=== PATIENT | male | born 1945 | race Caucasian/White ===

== ENCOUNTER → 2023-08-16 11:11 | Outpatient (REF) | payer OTHER, SELFPAY | LOC: RAD 11:11 | PROVIDERS: ATTENDING PHYSICIAN Internal Medicine Cardiovascular Disease; FAMILY PHYSICIAN Family Medicine | DX: G45.9 Transient cerebral ischemic attack, unspecified (principal); I48.19 Other persistent atrial fibrillation | CPT/HCPCS: 93880 ==

== ENCOUNTER → 2023-08-16 12:54 | Outpatient (REF) | payer OTHER, SELFPAY | LOC: DHCBS MAIN 12:54 | PROVIDERS: ATTENDING PHYSICIAN Internal Medicine Cardiovascular Disease; FAMILY PHYSICIAN Family Medicine | DX: G45.9 Transient cerebral ischemic attack, unspecified (principal); I48.19 Other persistent atrial fibrillation | CPT/HCPCS: 93306 ==

== ENCOUNTER 2023-08-20 06:39 | Inpatient (IN) | payer OTHER, SELFPAY ==
--- NOTE | 2023-05-31 11:27 | CM ---
Addendum entered by Lyndsey Mays 07/24/23 10:03:
Patient's surgery date has been changed to 08/20/22.
Original Note:
Patient is scheduled for an elective L TKR on 07/02/23. Spoke with patient prior to surgery via telephone. Introduced role of Orthopedic Navigator. Patient reports that he lives with his in a one story home. There is one step to enter. He
currently functions independently. He has a cane and rolling walker (which are his 's from her prior orthopedic surgery). He has never had VN services. PCP is Dr. Matty Luo.
Discussed orthopedic program and post surgical plans. Reviewed anticipated length of stay and that goal is for him to return home at discharge. Also reviewed outpatient PT. Patient is in agreement with tentative plan and will go directly to
outpatient PT at [facility]. He will have support from his when he goes home.
Patient will complete online education.
Plan: Orthopedic Navigator will remain available to assist with the care of patient and will reassess discharge needs after surgery.
[2023-06-13 10:00] VITALS: BMI 32.4
[2023-06-13 10:53] LABS: Hematocrit 46.9 % (39.0-52.0); Hemoglobin 15.9 g/dL (13.0-18.0); Mean Corp Hgb Conc. 33.9 g/dL (33.0-37.0); Mean Corpuscular Hgb 32.6 pg (27.0-31.0); Mean Corpuscular Volume 96.1 fL (80.0-94.0); Mean Platelet Volume 9.6 fL (7.4-10.4); Platelet Count 208 10^3/uL (130-400); Red Blood Cell Count 4.88 10^6/uL (4.70-6.10); Red Cell Dist. Width 13.4 % (11.5-14.5); White Blood Cell Count 4.9 10^3/uL (4.8-10.8)
[2023-06-13 11:25] LABS: ALT (SGPT) 37 U/L (0-50); AST (SGOT) 40 U/L (17-59); Albumin 4.2 g/dl (3.5-5.0); Alkaline Phosphatase 62 U/L (38-126); Blood Urea Nitrogen 26 mg/dl (9-20); Calcium 9.6 mg/dl (8.4-10.2); Carbon Dioxide 28 mmol/L (22-30); Chloride 103 mmol/L (98-107); Estimated Creatinine Clearance 55 ml/min; Glucose 98 mg/dl (70-99); Potassium 4.4 mmol/L (3.5-5.1); Sodium 141 mmol/L (135-145); Total Protein 6.9 g/dl (6.3-8.2); eGFR 56.23
[2023-06-13 16:29] VITALS: BMI 32.4
[2023-06-14 12:50] LABS: Glycohemoglobin (HgbA1c) 5.7 % (4.0-5.6)
[2023-07-31 10:48] LABS: Hematocrit 45.8 % (39.0-52.0); Mean Corp Hgb Conc. 34.9 g/dL (33.0-37.0); Mean Corpuscular Hgb 33.8 pg (27.0-31.0); Mean Corpuscular Volume 96.6 fL (80.0-94.0); Mean Platelet Volume 10.1 fL (7.4-10.4); Platelet Count 201 10^3/uL (130-400); Red Blood Cell Count 4.74 10^6/uL (4.70-6.10); Red Cell Dist. Width 14.4 % (11.5-14.5); White Blood Cell Count 5.2 10^3/uL (4.8-10.8)
[2023-07-31 11:03] LABS: ALT (SGPT) 28 U/L (0-50); AST (SGOT) 33 U/L (17-59); Albumin 4.1 g/dl (3.5-5.0); Alkaline Phosphatase 57 U/L (38-126); Blood Urea Nitrogen 21 mg/dl (9-20); Calcium 9.2 mg/dl (8.4-10.2); Carbon Dioxide 31 mmol/L (22-30); Chloride 103 mmol/L (98-107); Estimated Creatinine Clearance 55 ml/min; Glucose 93 mg/dl (70-99); Potassium 4.2 mmol/L (3.5-5.1); Sodium 139 mmol/L (135-145); Total Protein 6.8 g/dl (6.3-8.2); eGFR 56.23
--- NOTE | 2023-07-31 11:05 | HPS.HSE ---
Family Physician
-
Family Physician: Berny Luo
Chief Complaint
-
Advanced primary osteoarthritis of the left knee.
History of Present Illness
The patient is a 77-year-old male presenting today for advanced primary osteoarthritis of the left knee. The patient reports significant left knee pain secondary to this diagnosis. He notes that his current left knee pain is greatly
interfering with his activities of daily living and is overall impacting his quality of life. He has tried and failed multiple conservative treatment measures in the past for his knee pain. These conservative treatment measures include
intra-articular injections, self-directed therapeutic exercises, activity modification, attempted weight loss, medical management with Tylenol, and the application of ice and/or heat. Recent x-rays revealed [id number] end-stage arthritis with
periarticular spur formation. He was determined to be in need of a left total knee arthroplasty. He denies any current complaints today, such as chest pain, shortness of breath, palpitations, nausea, vomiting, diarrhea, lightheadedness, dizziness,
cough, sore throat, or fever.
Medical History
Past Medical History
Past Medical History: Reports Other
Additional Past Medical History:
1.�Osteoarthritis.
2.�Hypertension.
3.�Hyperlipidemia.
4.�Persistent atrial fibrillation, status post multiple cardioversions and ablation x4; pharmacological therapy with Diltiazem and Metoprolol, oral anticoagulation with Eliquis.
5. Abdominal aortic aneurysm, 2.6 cm, on CT 07/2022.
6. Mild-moderate valvular disease.
7. Pulmonary nodules, likely benign.
8. Chronic kidney disease stage 3.
9. Diverticulosis.
10.�Fatty liver disease.
11. Bilateral renal cysts.
12. 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
13. History of rectal bleed 2016.
14. Multilevel degenerative disc disease with radiculopathy.
15. Chronic sinusitis.
16. Psoriasis.
17.�Insomnia.
18. Depression.
19. Anxiety.
20. Prediabetes, A1c 5.8.
21.�Obesity, BMI 32.4.
22.�History of remote tobacco abuse.
Past Surgical History: Reports Other
Additional Past Surgical History:
1.�Atrial fibrillation ablation x4.
2. Multiple ZACH-guided cardioversions.
3. Remote right axillary lymph node dissection.
4. Nasal polyp excision.
5. Colonoscopy.
Social History
Tobacco: Former Smoker (Former 1 pack per day cigarette smoker who quit tobacco altogether 45 years ago. )
Alcohol: None
Personal:
Living: Other (He lives in a ranch style home with his spouse. )
Family History
Family History: Not pertinent
Allergies / Home Medications
Allergy/Medication List:
Home medications:
1. Diltiazem 180 mg p.o. daily.
2. Eliquis 5 mg p.o. twice a day.
3. Hydrochlorothiazide 25 mg p.o. daily.
4. Magnesium citrate 200 mg p.o. daily.
5. Melatonin 3 mg p.o. at bedtime.
6. Metoprolol succinate 50 mg p.o. twice a day.
7. Mirtazapine 7.5 mg p.o. at bedtime.
8. Paxil 20 mg p.o. daily.
9. Azelastine-fluticasone 1 spray intranasal daily as needed.
10. Budesonide 0.5 mg inhaled at bedtime.
11. Cetirizine 10 mg p.o. daily as needed.
12. Clobetasol 1 application topical daily as needed.
13. Flaxseed oil 1 capsule p.o. at bedtime.
14. Flaxseed oil 2 capsule p.o. daily.
15. Osteo Bi-Flex 1 tablet p.o. twice a day.
16. Ipratropium bromide 2 sprays intranasal three times a day as needed.
17. Multivitamin 1 tablet p.o. daily.
18. Miralax 17 grams p.o. daily.
19. Saw palmetto 500 mg p.o. twice a day.
20. Zinc 82 mg p.o. every other day.
Allergies: Dust. Mold. [place]. Ragweed. Hayfever. No known drug allergies.
Review of Systems
-
A 12 point ROS was completed and negative except as noted: Yes
Physical Exam
Vital Signs
Blood pressure 131/88. Heart rate 70. Respirations 18. Pulse ox 97% on room air.
Height 5 feet, 9.5 inches. Weight 101 kg. BMI 32.4.
Physical Exam
General: Well Developed, Well Nourished and No Apparent Distress
HEENT: NormoCephalic, Moist mucous membranes, Atraumatic and PERRLA
Respiratory: Clear
Cardiac: Irregular Rhythm
GI: Soft, Non Tender and Non Distended
Musculoskeletal: Other (Left knee: varus deformity. Range of motion 5-120. Positive medial joint line tenderness with mild lateral joint line tenderness. Negative patellar grind. Trace effusion. Mild instability to valgus stress. Palpable Rodriguez
cyst.)
Skin: Warm and Dry
Neuro: AO x 3 and Nonfocal/grossly intact
Laboratory Results
-
07/31/23 08:55
07/31/23 08:55
Laboratory Results
Total Bilirubin 1.0 mg/dl (0.2-1.3) 07/31/23 08:55
AST 33 U/L (17-59) 07/31/23 08:55
ALT 28 U/L (0-50) 07/31/23 08:55
Alkaline Phosphatase 57 U/L (38-126) 07/31/23 08:55
Hemoglobin A1c 5.8.
MRSA screen negative.
EKG provided by Cardiology.
Echocardiogram 02/13/2023: Estimated ejection fraction is 60-65%.�Mild concentric LVH. Moderate mitral regurgitation. Thickened aortic valve with mild aortic insufficiency. Mild tricuspid regurgitation with estimated pulmonary systolic pressures of
40-45 mmHg.
Impression/Plan
-
CLEARANCES:
1. Primary medical: Dr. Berny Luo, pending.
Primary medical phone number: [phone].
2. Cardiology: Dr. Emmanuel Atkins, cleared.
3. Dental pending.
IMPRESSION/PLAN:
1. Advanced primary osteoarthritis of the left knee in need of a left total knee arthroplasty with Dr. Thaddeus Corona on 08/20/2023. The benefits and risks of the procedure have been explained to the patient. The patient understands these risks and
wishes to proceed.
2. DVT prophylaxis: Eliquis at modified dosing with bilateral venous foot pumps. He is aware to hold his Eliquis 3 days prior to his upcoming procedure. We will resume his home dosing of Eliquis on post-operative day 14 as long as he remains
hemodynamically stable. Plasma flow devices were highly encouraged to be used in the outpatient setting upon discharge.
3. Persistent atrial fibrillation: The patient will be monitored on telemetry post-operatively. He will continue his Metoprolol and Diltiazem without interruption.
4. Pain management: A steroid taper will be considered post-operatively. The patient would like to minimize the use of Lidoderm patches if able.
Patient's phone number: [phone].
Patient's contact (Maren Canada - Spouse): [phone].
[2023-07-31 11:32] VITALS: BMI 35.3
[2023-07-31 12:48] LABS: Glycohemoglobin (HgbA1c) 5.8 % (4.0-5.6)
[2023-07-31 14:40] VITALS: BMI 35.3
--- NOTE | 2023-08-10 09:04 | SLEEP.APNEA ---
Sleep Apnea Order
-
Patient screened as High Risk for Sleep Apnea on [employer] Questionnaire. Patient referred to [facility] for Pre-Study.

Name: DEWEY MOHAMUD
: 1945
Home Phone: Use [email or web address] instead
Cell Phone: [f_Reg Other Phone]
Work Phone:
Address: [address] [place] [address]
City: [place]
State: [place]
Zip: [f_[facility] Zip]
Family Physician: Berny Luo
Height 5 ft 9 in
Actual Weight 108.4 kg
Body Mass Index (BMI) 35.3
Ordering Provider: Lakshmi Sharma PA-C
[2023-08-20] VITALS (11 sets, daily range): BP systolic 103–138; BP diastolic 68–89; PULSE 63–65; O2SAT 95; BMI 35.3
[2023-08-20] MEDS: TYLENOL 650 MG PO ×3 (10:01→21:37)
[2023-08-20] MEDS: CELEBREX 200 MG PO (10:01)
[2023-08-20] MEDS: NORMOSOL-R 1000 IV ×2 (10:01→14:15)
--- NOTE | 2023-08-20 14:39 | W.PN.ORTHO ---
Today's Communication / Plan
-
D/c when clinically stable.
Assessment
.
Distal Motor Intact: Yes
Dressing:
Clean, dry and intact.
Assessment:
L knee OA s/p L TKA w/ Dr Corona 08/20/23
DVT prophylaxis - Eliquis at modified dosing until POD 14, b/l venous foot pumps
HTN - + parameters - monitor BP
Persistent atrial fibrillation, status post multiple cardioversions and ablation x4 - monitor on tele
- Continue Diltiazem and Metoprolol
- Resume Eliquis as stated above
Chronic kidney disease stage 3 - minimize nephrotoxins as able
Multilevel degenerative disc disease with radiculopathy - add Gabapentin TID
Hyperlipidemia
Abdominal aortic aneurysm, 2.6 cm, on CT 07/2022
Mild-moderate valvular disease
Pulmonary nodules, likely benign
Diverticulosis
Fatty liver disease
Bilateral renal cysts
Multiple pancreatic cystic lesions, stable on abdominal MRI 11/2022
History of rectal bleed 2016
Chronic sinusitis
Psoriasis
Insomnia
Depression
Anxiety
Prediabetes, A1c 5.8
Obesity, BMI 32.4
History of remote tobacco abuse
Plan
.
Surgery / Date: L TKA w/ Dr Corona 08/20/23
DVT Prophylaxis: Other (Eliquis at modified dosing until POD 14)
Activity:
Out of bed.
PT/OT
Discharge Plan: Home w/ Outpatient PT
Subjective
.
.:
Patient resting comfortably in the PACU.
L knee pain minimal and well tolerated.
Denies any new significant complaints.
Vital Signs and Labs
.
Vital Signs and Labs:
Lab Results
07/31/23 08:55
07/31/23 08:55
Physical Exam
-
HEENT: No pallor, cyanosis, or jaundice. Throat clear.
NECK: Supple. No JVD.
RESPIRATORY: Lungs clear to auscultation.
CVS: Irregular irregular rhythm (rate controlled)
ABDOMEN: Soft, non-tender. No distension. Obese.
EXTREMITIES: Strength equal, no calf pain with palpation/dorsiflexion. Calves soft.
MANUFACTURING PROJECT MANAGER: AOx3. No focal deficits. enterprise application architect grossly intact
--- NOTE | 2023-08-20 15:00 | PTCARENOTE ---
Pt arrived to [facility] [address] from PACU s/p L TKA. Pt L knee aqauacel C/D/I, NV intact- still gaining sensation back. IVF infusing. Pt states no pain at this time. Pt oriented to call adkins and room, bed locked and in lowest position, call adkins within reach.
[2023-08-20] MEDS: DELTASONE 40 MG PO (16:11)
[2023-08-20] MEDS: PAXIL 10 MG PO (16:11)
[2023-08-20] MEDS: PULMICORT 0.5 MG INH (20:00)
[2023-08-20] MEDS: MELATONIN 3 MG PO (21:35)
[2023-08-20] MEDS: ANCEF 5 IV (21:35)
[2023-08-20] MEDS: REMERON 7.5 MG PO (21:35)
[2023-08-20] MEDS: ELIQUIS 2.5 MG PO (21:36)
[2023-08-20] MEDS: TOPROL XL 50 MG PO (21:36)
[2023-08-20] MEDS: BACTROBAN 2% OINTMENT 1 APPLIC NASAL (21:38)
[2023-08-21] VITALS: BP 126/79
[2023-08-21] MEDS: TYLENOL PO (00:17)
[2023-08-21] MEDS: TYLENOL 650 MG PO ×3 (03:11→11:07)
[2023-08-21] MEDS: ANCEF 5 IV (03:11)
[2023-08-21 03:24] VITALS: BP 126/78
[2023-08-21 06:00] VITALS: BMI 34.7
[2023-08-21] MEDS: BACTROBAN 2% OINTMENT 2 APPLIC NASAL (08:28)
[2023-08-21] MEDS: ELIQUIS 2.5 MG PO (08:29)
[2023-08-21] MEDS: CARDIZEM CD 180 MG PO (08:30)
[2023-08-21] MEDS: DELTASONE 40 MG PO (08:31)
[2023-08-21] MEDS: PAXIL 10 MG PO (08:32)
[2023-08-21] MEDS: TOPROL XL 50 MG PO (08:32)
[2023-08-21 09:35] VITALS: BP 111/71; PULSE 83
--- NOTE | 2023-08-21 09:44 | CM ---
Reviewed chart and held rounds with PT, OT and nursing. Patient admitted as planned for elective L TKR. Met with patient at bedside. Confirmed information previously obtained for assessment. Also discussed discharge plans. The plan is for patient
to go to his home. He will have support from his . Patient will go directly to outpatient PT at [facility] [place]. He has an appointment for Sunday, August 22. Reviewed need to schedule appointment with PA at Dr. Corona office in two
weeks for removal of suad.
Patient has rolling walker and cane.
He will use [facility] in [place] for medications.
[2023-08-21 10:25] VITALS: BP 109/71; PULSE 83; O2SAT 96
--- NOTE | 2023-08-21 11:19 | W.PN.ORTHO ---
Today's Communication / Plan
-
D/c today since clinically stable.
Assessment
.
Distal Motor Intact: Yes
Dressing:
Clean, dry and intact.
Assessment:
L knee OA s/p L TKA w/ Dr Corona 08/20/23
DVT prophylaxis - Eliquis at modified dosing until POD 14, b/l venous foot pumps
HTN - + parameters - BPs stable
Persistent atrial fibrillation, status post multiple cardioversions and ablation x4 - maintaining rate-controlled A fib on tele
- Continue Diltiazem and Metoprolol
- Resumed Eliquis as stated above
Chronic kidney disease stage 3 - continue to minimize nephrotoxins as able
Multilevel degenerative disc disease with radiculopathy - added Gabapentin TID
Hyperlipidemia
Abdominal aortic aneurysm, 2.6 cm, on CT 07/2022
Mild-moderate valvular disease
Pulmonary nodules, likely benign
Diverticulosis
Fatty liver disease
Bilateral renal cysts
Multiple pancreatic cystic lesions, stable on abdominal MRI 11/2022
History of rectal bleed 2016
Chronic sinusitis
Psoriasis
Insomnia
Depression
Anxiety
Prediabetes, A1c 5.8
Obesity, BMI 32.4
History of remote tobacco abuse
Plan
.
Surgery / Date: L TKA w/ Dr Corona 08/20/23
DVT Prophylaxis: Other (Eliquis at modified dosing. )
Activity:
Out of bed.
PT/OT
Discharge Plan: Home w/ Outpatient PT
Subjective
.
.:
Patient resting comfortably in his chair this morning.
Did well w/ both PT and OT today.
Denies any new significant complaints.
L knee pain minimal w/ current pain meds.
Eager for potential d/c today.
Vital Signs and Labs
.
Vital Signs and Labs:
Lab Results
07/31/23 08:55
07/31/23 08:55
Temp Pulse Resp BP Pulse Ox
97.9 F 83 18 120/64 97
08/21/23 03:24 08/21/23 08:32 08/21/23 03:24 08/21/23 08:33 08/21/23 03:24
Physical Exam
-
HEENT: No pallor, cyanosis, or jaundice. Throat clear.
NECK: Supple. No JVD.
RESPIRATORY: Lungs clear to auscultation.
CVS: Irregular irregular (rate controlled).
ABDOMEN: Soft, non-tender. No distension. Obese.
EXTREMITIES: Minimal L knee post-surgical edema. Strength equal, no calf pain with palpation/dorsiflexion. Calves soft.
ACADEMIC COORDINATOR: AOx3. No focal deficits. keno writer/runner grossly intact
[2023-08-21 11:34] VITALS: BP 130/76
--- NOTE | 2023-08-21 11:36 | W.DS.TRANS ---
DC Summary - Nitr[place] Lab Technician
-
Discharge Instructions:
Sleep Apnea Risk High
Discharge Diagnosis/Procedures L knee OA s/p L TKA w/ Dr Corona 08/20/23
Diet Regular
Activity As tolerated,With Walker
Driving Restrictions Not until seen by your Dr
Bathing Restrictions OK to Shower
Other Services PT
Wound Care Dressing to be removed 1 week post-surgery.
[place] to be removed at 2 week follow-up
appointment with surgeon's office.
Instructions:
Stand-Alone Forms: Total Hip/Knee Replacement D/C
Changes to Home Medications: Yes
Discharge Medications:
DC Medications w/original date entered in [employer]
metoprolol succinate 50 mg tablet,extended release 24 hr 50 mg PO BID Blood pressure 05/23/11
apixaban 5 mg tablet (Eliquis) 5 mg PO BID Blood clot prevention/tx 06/30/22
ipratropium bromide 42 mcg (0.06 %) nasal spray 2 spray intranasal TID PRN allergies 02/13/23
diltiazem HCl 180 mg capsule,extended release 24 hr 180 mg PO DAILY Arrhythmia #60 caps 02/14/23
azelastine 137 mcg-fluticasone 50 mcg/spray nasal spray 1 spray intranasal DAILY PRN allergies 06/06/23
clobetasol 0.05 % topical cream 1 applic topical DAILY PRN psoriasis 06/06/23
magnesium citrate 100 mg tablet 200 mg PO HSPRN PRN cramping 06/06/23
melatonin 3 mg tablet 3 mg PO HS Sleep 06/06/23
saw palmetto 500 mg capsule 500 mg PO BID Supplement 06/06/23
cetirizine 10 mg tablet 10 mg PO DAILY PRN allergy 07/26/23
flaxseed oil-omega 3,6,9-fatty acids 1,200 mg-540 mg-132 mg capsule 2 cap PO DAILY Supplement 07/26/23
glucosamine 750 [id number] no1 644 mg-C 30 mg-frank 1 mg tablet (Osteo Bi-Flex Triple Strength) 1 tab PO BID Supplement 07/26/23
multivitamin 1 tab PO DAILY Supplement 07/26/23
paroxetine HCl 20 mg tablet (Paxil) 10 mg PO DAILY Depression 07/26/23
zinc 82 mg PO Q48H Supplement 07/26/23
budesonide 0.5 mg/2 mL suspension for nebulization 0.5 mg inhalation HS Lung/Breathing Issues 07/31/23
flaxseed oil 1,300 mg-omega 3,6,9 845 mg-117 mg-117 mg capsule 1 cap PO HS Supplement 07/31/23
mupirocin 2 % topical ointment 1 applic intranasal BID #1 tube 08/15/23
acetaminophen 500 mg tablet (Acetaminophen Extra Strength) 1,000 mg PO Q6H #60 tabs 08/21/23
apixaban 2.5 mg tablet (Eliquis) 2.5 mg PO BID #28 tabs 08/21/23
docusate sodium 100 mg capsule 100 mg PO BID #30 caps 08/21/23
hydrochlorothiazide 25 mg tablet 25 mg PO DAILY Blood Pressure #0 tabs 08/21/23
mirtazapine 15 mg tablet (Remeron) 7.5 mg PO HS Mental Health/Anxiety #0 tabs 08/21/23
ondansetron HCl 4 mg tablet 4 mg PO Q6H PRN nausea and vomiting #30 tabs 08/21/23
oxycodone 5 mg tablet 5 - 10 mg PO Q6H PRN moderate-severe pain #30 tabs 08/21/23
polyethylene glycol 3350 17 gram oral powder packet 17 g PO DAILY Constipation #0 ea 08/21/23
prednisone 10 mg tablet 40 mg PO TAPER #20 tabs 08/21/23
sennosides 8.6 mg tablet (Senna Lax) 17.2 mg PO BID #30 tabs 08/21/23
Home Medication Changes
acetaminophen 500 mg tablet (Acetaminophen Extra Strength) 1,000 mg PO Q6H #60 tabs 08/21/23
apixaban 2.5 mg tablet (Eliquis) 2.5 mg PO BID #28 tabs 08/21/23 - until 09/03
docusate sodium 100 mg capsule 100 mg PO BID #30 caps 08/21/23
ondansetron HCl 4 mg tablet 4 mg PO Q6H PRN nausea and vomiting #30 tabs 08/21/23
oxycodone 5 mg tablet 5 - 10 mg PO Q6H PRN moderate-severe pain #30 tabs 08/21/23
prednisone 10 mg tablet 40 mg PO TAPER #20 tabs 08/21/23
sennosides 8.6 mg tablet (Senna Lax) 17.2 mg PO BID #30 tabs 08/21/23
Pending Results: No
== END 2023-08-21 12:21 | disposition home or self-care (01) | DRG 470 ==
LOC: 2 SOUTH 06:39
PROVIDERS: ADMITTING PHYSICIAN Specialist; FAMILY PHYSICIAN Family Medicine
PROC: 0SRD0J9 Replacement of Left Knee Joint with Synthetic Substitute, Cemented, Open Approach (ICD-10-PCS; 2023-08-20)
DX: M17.12 Unilateral primary osteoarthritis, left knee (principal); I48.19 Other persistent atrial fibrillation; K86.2 Cyst of pancreas; E66.9 Obesity, unspecified; E78.5 Hyperlipidemia, unspecified; K76.0 Fatty (change of) liver, not elsewhere classified; G47.00 Insomnia, unspecified; R91.1 Solitary pulmonary nodule; M51.16 Intervertebral disc disorders with radiculopathy, lumbar region; I71.40 Abdominal aortic aneurysm, without rupture, unspecified; F32.A Depression, unspecified; F41.9 Anxiety disorder, unspecified; R91.8 Other nonspecific abnormal finding of lung field; N18.30 Chronic kidney disease, stage 3 unspecified; K57.90 Diverticulosis of intestine, part unspecified, without perforation or abscess without bleeding; J32.9 Chronic sinusitis, unspecified; L40.9 Psoriasis, unspecified; R73.03 Prediabetes; I12.9 Hypertensive chronic kidney disease with stage 1 through stage 4 chronic kidney disease, or unspecified chronic kidney disease; N28.1 Cyst of kidney, acquired; Z68.32 Body mass index [BMI] 32.0-32.9, adult; Z87.891 Personal history of nicotine dependence; Z79.01 Long term (current) use of anticoagulants
CPT/HCPCS: 36415; 73560; 80053; 83036; 85027; 87070; 94640; 97110; 97162; 97166; 97530; 97535; C1713; C1776

== ENCOUNTER → 2023-09-05 09:08 | Outpatient (REF) | payer OTHER, SELFPAY | LOC: RAD 09:08 | PROVIDERS: ATTENDING PHYSICIAN Internal Medicine Cardiovascular Disease; FAMILY PHYSICIAN Family Medicine | DX: I71.9 Aortic aneurysm of unspecified site, without rupture (principal); I10 Essential (primary) hypertension | CPT/HCPCS: 71250 ==

== ENCOUNTER 2023-09-11 07:52 | Outpatient (RCR) | payer OTHER, SELFPAY | END 2023-09-11 23:59 | disposition home or self-care (01) | LOC: RPT 07:52 | PROVIDERS: ATTENDING PHYSICIAN Specialist; FAMILY PHYSICIAN Family Medicine | DX: Z47.1 Aftercare following joint replacement surgery (principal); Z96.652 Presence of left artificial knee joint; Z73.6 Limitation of activities due to disability | CPT/HCPCS: 97110; 97112; 97162; 97530; 97535 ==

== ENCOUNTER 2023-10-05 11:14 | Outpatient (RCR) | payer OTHER, SELFPAY | END 2023-10-05 15:57 | disposition home or self-care (01) | LOC: RPT 11:14 | PROVIDERS: ATTENDING PHYSICIAN Specialist; FAMILY PHYSICIAN Family Medicine | DX: Z47.1 Aftercare following joint replacement surgery (principal); Z73.6 Limitation of activities due to disability; R26.2 Difficulty in walking, not elsewhere classified; M62.81 Muscle weakness (generalized); Z96.652 Presence of left artificial knee joint | CPT/HCPCS: 97110; 97112; 97530 ==

== ENCOUNTER 2023-10-08 06:19 | Day surgery (SDC) | payer OTHER, SELFPAY ==
--- NOTE | 2023-09-06 10:12 | CM ---
Patient is scheduled for an elective R TKR on 10/08/23- he is a same day patient. Spoke with patient prior to surgery. Patient had a L TKR at on 08/20/23. Reintroduced role of Orthopedic Navigator. Patient reports that he lives with his in a
one story home. There is one step to enter. He currently functions independently. He has a cane and rolling walker. He has never had VN services. PCP is Matty Luo.
Discussed orthopedic program and post surgical plans. Reviewed that he will have VN services initially (medicare.gov website and ratings reviewed) and will then start outpatient PT. Patient does not feel that he needs VN and would prefer to go right
to outpatient PT. He will come to for outpatient PT.
Patient is in agreement with plan and states that his will be home with him.
Patient does not need to complete online education since he recently had a TKR.
Plan: Orthopedic Navigator will remain available to assist with the care of patient and will reassess discharge needs after surgery.
[2023-09-20 08:57] VITALS: BMI 34.3
[2023-09-20 09:55] LABS: Hematocrit 40.4 % (39.0-52.0); Mean Corp Hgb Conc. 34.7 g/dL (33.0-37.0); Mean Corpuscular Hgb 33.7 pg (27.0-31.0); Mean Corpuscular Volume 97.1 fL (80.0-94.0); Mean Platelet Volume 9.4 fL (7.4-10.4); Platelet Count 291 10^3/uL (130-400); Red Blood Cell Count 4.16 10^6/uL (4.70-6.10); Red Cell Dist. Width 13.5 % (11.5-14.5); White Blood Cell Count 5.1 10^3/uL (4.8-10.8)
[2023-09-20 10:47] LABS: ALT (SGPT) 21 U/L (0-50); AST (SGOT) 26 U/L (17-59); Albumin 3.9 g/dl (3.5-5.0); Alkaline Phosphatase 69 U/L (38-126); Blood Urea Nitrogen 19 mg/dl (9-20); Calcium 9.5 mg/dl (8.4-10.2); Carbon Dioxide 29 mmol/L (22-30); Chloride 99 mmol/L (98-107); Estimated Creatinine Clearance 66 ml/min; Glucose 152 mg/dl (70-99); Potassium 3.8 mmol/L (3.5-5.1); Sodium 138 mmol/L (135-145); Total Bilirubin 0.4 mg/dl (0.2-1.3); Total Protein 6.6 g/dl (6.3-8.2); eGFR > 60.00
[2023-09-20 11:52] LABS: Glycohemoglobin (HgbA1c) 5.6 % (4.0-5.6)
[2023-09-20 15:10] VITALS: BMI 34.3
[2023-10-08] VITALS (32 sets, daily range): BP systolic 83–129; BP diastolic 54–85; PULSE 69; O2SAT 95; BMI 34.3
--- NOTE | 2023-10-08 06:33 | W.DS.TRANS ---
DC Summary - Stage Director
-
Discharge Instructions:
Sleep Apnea Risk Intermediate
Discharge Diagnosis/Procedures R TKA Dr. Corona 10/08/23
Diet As tolerated
Activity With Walker
Driving Restrictions No driving
Bathing Restrictions OK to Shower
Instructions:
Stand-Alone Forms: SDS Total Hip and Knee D/C
Changes to Home Medications: Yes
Discharge Medications:
DC Medications w/original date entered in [facility]
metoprolol succinate 50 mg tablet,extended release 24 hr 50 mg PO BID Blood pressure 05/23/11
ipratropium bromide 42 mcg (0.06 %) nasal spray 2 spray intranasal TID PRN allergies 02/13/23
diltiazem HCl 180 mg capsule,extended release 24 hr 180 mg PO DAILY Arrhythmia #60 caps 02/14/23
azelastine 137 mcg-fluticasone 50 mcg/spray nasal spray 1 spray intranasal DAILY PRN allergies 06/06/23
clobetasol 0.05 % topical cream 1 applic topical DAILY PRN psoriasis 06/06/23
magnesium citrate 100 mg tablet 200 mg PO HSPRN PRN cramping 06/06/23
melatonin 3 mg tablet 3 mg PO HS Sleep 06/06/23
saw palmetto 500 mg capsule 500 mg PO BID Supplement 06/06/23
cetirizine 10 mg tablet 10 mg PO DAILY PRN allergy 07/26/23
glucosamine 750 [id number] no1 644 mg-C 30 mg-frank 1 mg tablet (Osteo Bi-Flex Triple Strength) 1 tab PO BID Supplement 07/26/23
multivitamin 1 tab PO DAILY Supplement 07/26/23
paroxetine HCl 20 mg tablet (Paxil) 10 mg PO DAILY Depression 07/26/23
zinc 82 mg PO Q48H Supplement 07/26/23
flaxseed oil 1,300 mg-omega 3,6,9 845 mg-117 mg-117 mg capsule 1 cap PO HS Supplement 07/31/23
polyethylene glycol 3350 17 gram oral powder packet 17 g PO DAILY Constipation #0 ea 08/21/23
mirtazapine 15 mg tablet (Remeron) 15 mg PO HS Mental Health/Anxiety 09/17/23
zolpidem 5 mg tablet (Ambien) 5 mg PO HS PRN Insomnia 09/17/23
mupirocin 2 % topical ointment 1 applic topical BID infection prevention #1 tube 09/20/23
prednisone 10 mg tablet 40 mg PO TAPER inflammation #20 tabs 09/20/23
acetaminophen 500 mg tablet (Acetaminophen Extra Strength) 1,000 mg PO QID #0 tabs 10/08/23
apixaban 5 mg tablet (Eliquis) 2.5 mg PO BID Blood clot prevention/arrythmia #0 tabs 10/08/23
docusate sodium 100 mg capsule (Colace) 100 mg PO BID stool softner #1 cap 10/08/23
hydrochlorothiazide 25 mg tablet 25 mg PO DAILY Blood Pressure #0 tabs 10/08/23
magnesium hydroxide 400 mg/5 mL oral suspension (Milk of Magnesia) 30 ml PO HS PRN Constipation #1 mL 10/08/23
oxycodone 5 mg tablet 5 - 10 mg PO Q6HPRN PRN 1 tab moderate-2 tabs severe pain #30 tabs 10/08/23
sennosides 8.6 mg tablet (Senokot) 17.2 mg PO BID laxative #2 tabs 10/08/23
Home Medication Changes
prednisone 10 mg tablet 40 mg PO TAPER inflammation #20 tabs 09/20/23
apixaban 5 mg tablet (Eliquis) 2.5 mg PO BID Blood clot prevention/arrythmia #0 tabs 10/08/23
Pending Results: No
[2023-10-08] MEDS: TYLENOL 650 MG PO (06:43)
[2023-10-08] MEDS: NORMOSOL-R 1000 IV ×2 (06:44→10:45)
[2023-10-08] MEDS: CELEBREX 200 MG PO (06:44)
--- NOTE | 2023-10-08 11:00 | CM ---
Patient had planned R TKR today. Met with patient and his at bedside to review discharge plans. Patient will be returning home today. He will start outpatient PT tomorrow, 10/08. He will come to [facility]. Reviewed MD follow up in two
weeks and patient has already scheduled his appointment.
Patient has his rolling walker here with him.
PT was kept updated as to progress and discharge plans.
[2023-10-08] MEDS: ANCEF 5 IV (11:10)
== END 2023-10-08 12:25 | disposition home or self-care (01) ==
LOC: SDS 06:19
PROVIDERS: ATTENDING PHYSICIAN Specialist; FAMILY PHYSICIAN Family Medicine; OTHER PHYSICIAN Internal Medicine Cardiovascular Disease; OTHER PHYSICIAN Physician Assistant Medical
DX: M17.11 Unilateral primary osteoarthritis, right knee (principal); I48.0 Paroxysmal atrial fibrillation; I71.40 Abdominal aortic aneurysm, without rupture, unspecified; K76.0 Fatty (change of) liver, not elsewhere classified; M51.36 Other intervertebral disc degeneration, lumbar region; I10 Essential (primary) hypertension; E66.9 Obesity, unspecified; Z68.34 Body mass index [BMI] 34.0-34.9, adult; Z87.891 Personal history of nicotine dependence; Z79.01 Long term (current) use of anticoagulants; Z87.19 Personal history of other diseases of the digestive system; Z96.652 Presence of left artificial knee joint
CPT/HCPCS: 27447; C1713; C1776; 36415; 73560; 80053; 83036; 85027; 87070; 97161; 97530

== ENCOUNTER 2023-10-12 11:03 | Outpatient (RCR) | payer OTHER, SELFPAY | END 2023-10-12 23:59 | disposition home or self-care (01) | LOC: RPT 11:03 | PROVIDERS: ATTENDING PHYSICIAN Specialist; FAMILY PHYSICIAN Family Medicine | DX: Z47.1 Aftercare following joint replacement surgery (principal); Z96.651 Presence of right artificial knee joint; Z73.6 Limitation of activities due to disability | CPT/HCPCS: 97110; 97161; 97535 ==

== ENCOUNTER 2023-11-13 13:18 | Outpatient (RCR) | payer OTHER, SELFPAY | END 2023-11-13 23:59 | disposition home or self-care (01) | LOC: RPT 13:18 | PROVIDERS: ATTENDING PHYSICIAN Specialist; FAMILY PHYSICIAN Family Medicine | DX: Z47.1 Aftercare following joint replacement surgery (principal); Z96.651 Presence of right artificial knee joint; Z73.6 Limitation of activities due to disability | CPT/HCPCS: 97110; 97530 ==

== ENCOUNTER 2023-11-16 11:02 | Outpatient (RCR) | payer OTHER, SELFPAY | END 2023-11-16 12:21 | disposition home or self-care (01) | LOC: RPT 11:02 | PROVIDERS: ATTENDING PHYSICIAN Specialist; FAMILY PHYSICIAN Family Medicine | DX: Z47.1 Aftercare following joint replacement surgery (principal); Z96.651 Presence of right artificial knee joint; Z73.6 Limitation of activities due to disability | CPT/HCPCS: 97110; 97535 ==

== ENCOUNTER → 2023-12-17 19:27 | Outpatient (REF) | payer OTHER, SELFPAY | LOC: MRI 19:27 | PROVIDERS: ATTENDING PHYSICIAN Internal Medicine Gastroenterology; FAMILY PHYSICIAN Family Medicine | DX: D49.0 Neoplasm of unspecified behavior of digestive system (principal) | CPT/HCPCS: 74183; A9575 ==

== ENCOUNTER → 2024-01-16 18:17 | Outpatient (REF) | payer OTHER, SELFPAY | LOC: MRI 18:17 | PROVIDERS: ATTENDING PHYSICIAN Specialist; FAMILY PHYSICIAN Family Medicine | DX: M54.16 Radiculopathy, lumbar region (principal) | CPT/HCPCS: 72148 ==

== ENCOUNTER → 2024-02-13 15:07 | Outpatient (REF) | payer OTHER, SELFPAY | LOC: RAD 15:07 | PROVIDERS: ATTENDING PHYSICIAN Family Medicine | DX: M25.572 Pain in left ankle and joints of left foot (principal); M79.605 Pain in left leg | CPT/HCPCS: 73590; 73610 ==

== ENCOUNTER → 2025-03-03 13:01 | Outpatient (REF) | payer OTHER, SELFPAY | LOC: PAVMRI 13:01 | PROVIDERS: ATTENDING PHYSICIAN Internal Medicine Gastroenterology; FAMILY PHYSICIAN Family Medicine | DX: D49.0 Neoplasm of unspecified behavior of digestive system (principal) | CPT/HCPCS: 74183; A9575 ==